=== PATIENT | female | born 2000 | race African-American/Black ===

== ENCOUNTER 2022-02-08 10:37 | Emergency (ER) | payer MEDICAID ==
[~2022-02-08] VITALS: Ht 160 cm; Wt 81.7 kg
[2022-02-08] MEDS ORDERED: ERYT1OIN BOTHEYES (10:45)
== END 2022-02-08 10:48 | disposition home or self-care (01) ==
LOC: ER 10:37
DX: H10.9 Unspecified conjunctivitis (principal)
CPT/HCPCS: 99282